=== PATIENT | female | born 2000 | race Caucasian/White ===

== ENCOUNTER 2023-01-03 16:53 | Emergency (ER) | payer OTHER ==
[~2023-01-03] VITALS: Ht 162.6 cm; Wt 76.2 kg
[2023-01-03 17:06] VITALS: BP 128/82
--- NOTE | 2023-01-03 17:09 | NUR ---
PT AMBULATED TO ER BED 5
--- NOTE | 2023-01-03 17:30 | NUR ---
22 y/o F BIB self from home c/o LLQ abdominal pain with associated nausea, vomiting, diarrhea x 3 days. Patient A&Ox4, ambulatory, also reports rash to bilateral hands +itchiness x 2 weeks. Patient reports LLQ abdominal and umbilical region pain +tenderness 8/10, squeezing/intermittent, non-radiating pain. Worsens with ambulating; alleviates with resting/lying position. Pt reports Pepto-Bismol @ 1200 with minor relief. Benadryl past few days with relief to rash. Patient denies dysuria, urinary symptoms, fever, chills, vaginal discharge, vaginal bleeding, constipation. LMP: 3 weeks ago. Bed locked in lowest position, side rails x 1. PMH/Sx/Meds: Denies NKDA
--- NOTE | 2023-01-03 17:34 | NUR ---
Carmita lomas in [facility] - 01/03/23 at [address] Kirkpatrick evaluating patient at bedside
--- NOTE | 2023-01-03 17:34 | NUR ---
Dr. Verdugo evaluating patient at bedside
[2023-01-03] MEDS ORDERED: ONDANSETRON 4 MG/2 ML VIAL IVP ONE (17:40)
[2023-01-03] MEDS ORDERED: FAMOTIDINE 20 MG/2 ML VIAL IVP ONE (17:40)
[2023-01-03] MEDS ORDERED: NACL 0.9% 1,000 ML IV SCH (17:40)
[2023-01-03] MEDS ORDERED: DICYCLOMINE 10 MG CAP PO ONE (17:40)
[2023-01-03 17:55] LABS: APPEARANCE,URINE CLEAR (CLEAR); BILIRUBIN,URINE NEGATIVE (NEGATIVE); BLOOD, URINE TRACE-I (NEGATIVE); COLOR,URINE YELLOW (YELLOW); LEUKOCYTE ESTERASE ,URINE NEGATIVE (NEGATIVE); NITRITE, URINE NEGATIVE (NEGATIVE); UGLUCOSE NEGATIVE (NEGATIVE)
--- NOTE | 2023-01-03 18:13 | NUR ---
Blood sample collected, handed to CPT Chey at ER bedside.
[2023-01-03 18:14] LABS: BASOPHILS % (AUTO) 0.2 % (0.0-2.0); EOSINOPHILS # (AUTO) 0.1 K/uL (0-0.4); EOSINOPHILS % (AUTO) 0.9 % (0.0-4.0); HEMATOCRIT 37.1 % (36-48); HEMOGLOBIN 12.5 g/dL (12.0-16.0); LYMPHOCYTES # (AUTO) 1.5 K/uL (2.5-16.5); LYMPHOCYTES % (AUTO) 19.8 % (20.5-51.1); MEAN CORPUSCULAR HEMOGLOBIN 27 pg (27-31); MEAN CORPUSCULAR HGB CONC 34 g/dL (33-37); MEAN CORPUSCULAR VOLUME 78.7 fL (80-94); MONOCYTES % (AUTO) 13.5 % (1.7-9.3); NEUTROPHILS # (AUTO) 5.1 K/uL (1.8-7.7); NEUTROPHILS % (AUTO) 65.6 % (42.2-75.2); PLATELET COUNT (AUTO) 182 K/uL (140-450); RED BLOOD CELL COUNT(AUTO) 4.71 MIL/uL (4.20-5.40); RED CELL DISTRIBUTION WIDTH 14.8 % (11.6-13.7); WHITE BLOOD COUNT (AUTO) 7.8 K/uL (4.8-10.8)
[2023-01-03 18:32] LABS: ANION GAP 12.4 (8-16); CARBON DIOXIDE 26.4 mmol/L (21-32); CREATININE 0.7 mg/dL (0.6-1.3); POTASSIUM 3.8 mmol/L (3.5-5.1); TOTAL BILIRUBIN 0.3 mg/dL (0.0-1.0)
--- NOTE | 2023-01-03 18:55 | NUR ---
Dr. Verdugo reevaluating pt at bedside
[2023-01-03] MEDS ORDERED: ONDA-188 PO (19:03)
[2023-01-03] MEDS ORDERED: LOPE2TAB42 PO (19:03)
[2023-01-03] MEDS ORDERED: BEN10 PO (19:03)
--- NOTE | 2023-01-03 19:03 | NUR ---
Patient states + relief to abdomnial pain and nausea; pain 2/10, denies nausea. All pt needs met.
[2023-01-03] MEDS ORDERED: CEPH-588 PO (19:04)
--- NOTE | 2023-01-03 19:43 | NUR ---
Patient discharged with v/s stable. Written and verbal after care instructions given and explained. Patient alert, oriented and verbalized understanding of instructions. Ambulatory with steady gait. All questions addressed prior to discharge. ID band removed. Patient advised to follow up with PMD. Rx of bentyl, keflex, loperamide, and zofran given. Opportunity to ask questions provided and answered.
== END 2023-01-03 19:43 | disposition home or self-care (01) ==
LOC: MED 16:53
DX: N30.00 Acute cystitis without hematuria (principal); R19.7 Diarrhea, unspecified; R11.2 Nausea with vomiting, unspecified; Z79.899 Other long term (current) drug therapy; Z79.2 Long term (current) use of antibiotics
CPT/HCPCS: 36415; 80053; 81001; 81025; 83690; 85025; 87086; 96361; 96374; 96375; 99284; J2405; J3490; J7030

== ENCOUNTER 2023-05-21 23:45 | Emergency (ER) | payer OTHER ==
[~2023-05-21] VITALS: Ht 165.1 cm; Wt 70.3 kg
[~2023-05-21 23:45] MED LIST: BEN10 PO; CEPH-588 PO; LOPE2TAB42 PO; ONDA-188 PO
[2023-05-21 23:47] VITALS: BP 111/71; PULSE 68; RESP 16; TEMP 98.2; O2SAT 100
[2023-05-22] VITALS: O2SAT 100
[2023-05-22 01:30] LABS: APPEARANCE,URINE CLOUDY (CLEAR); BILIRUBIN,URINE NEGATIVE (NEGATIVE); BLOOD, URINE 3+ (NEGATIVE); COLOR,URINE YELLOW (YELLOW); LEUKOCYTE ESTERASE ,URINE 1+ (NEGATIVE); NITRITE, URINE POSITIVE (NEGATIVE); PH,URINE 7.5 (5.0-9.0); PROTEIN,URINE 2+ (NEGATIVE); UGLUCOSE NEGATIVE (NEGATIVE)
[2023-05-22 01:46] LABS: BACTERIA,URINE >30 (MANY) /HPF (None Seen); MUCUS,URINE 1+ /LPF (None Seen); SQUAMOUS EPITHELIAL CELL,UR 0-3 (FEW) /LPF (0-3 (FEW)); WBC,URINE TOO MANY TO COUNT /HPF (0-5)
[2023-05-22] MEDS ORDERED: KETOROLAC 30 MG/ML VIAL IM ONE (01:55)
[2023-05-22] MEDS ORDERED: PHENAZOPYRIDINE 100 MG TAB PO ONE (01:55)
[2023-05-22] MEDS ORDERED: cefTRIAXone 1,000 MG in LIDOCAINE MPF 1% 2.1 ML IM ONE (01:55)
[2023-05-22] MEDS ORDERED: CEPH-588 PO (01:58)
[2023-05-22] MEDS ORDERED: NAPR-54 PO (01:58)
[2023-05-22] MEDS ORDERED: PYR100 PO (01:58)
[2023-05-22] MEDS ORDERED: LIDOCAINE MPF 1% 5 ML ONE (02:08)
[2023-05-22] MEDS ORDERED: cefTRIAXone 1,000 MG VIAL ONE (02:08)
== END 2023-05-22 02:20 | disposition home or self-care (01) ==
LOC: MED 23:45
DX: N30.01 Acute cystitis with hematuria (principal); N39.0 Urinary tract infection, site not specified; Z79.899 Other long term (current) drug therapy
CPT/HCPCS: 81001; 81025; 87086; 87491; 96372; 99284; J0696; J1885; J2001

== ENCOUNTER 2023-11-12 02:15 | Emergency (ER) | payer OTHER ==
[~2023-11-12] VITALS: Ht 162.6 cm; Wt 81.6 kg
[~2023-11-12 02:15] MED LIST changes: +NAPR-54 PO; +PYR100 PO
[2023-11-12 02:20] VITALS: BP 124/74; PULSE 88; RESP 16; TEMP 97.4; O2SAT 100
[2023-11-12 04:22] VITALS: BP 138/68; PULSE 68; RESP 12; O2SAT 96
== END 2023-11-12 04:22 | disposition home or self-care (01) ==
LOC: MED 02:15
DX: F10.129 Alcohol abuse with intoxication, unspecified (principal); Z79.899 Other long term (current) drug therapy; Y90.9 Presence of alcohol in blood, level not specified
CPT/HCPCS: 99281